=== PATIENT | male | born 1980 | race Caucasian/White ===

== ENCOUNTER 2024-07-03 17:01 | Emergency (ER) | payer OTHER ==
[~2024-07-03] VITALS: Ht 180.3 cm; Wt 106.0 kg
[2024-07-03] MEDS ORDERED: DIPHTH,PERTUSS(ACELL),TET VAC 0.5 ML SYRINGE IM ONE (17:30)
[2024-07-03 19:35] VITALS: BP 150/94
== END 2024-07-03 19:35 | disposition home or self-care (01) ==
LOC: ED 17:01
DX: S61.314A Laceration without foreign body of right ring finger with damage to nail, initial encounter (principal); S60.141A Contusion of right ring finger with damage to nail, initial encounter; W23.0XXA Caught, crushed, jammed, or pinched between moving objects, initial encounter
CPT/HCPCS: 73130; 90471; 90715; 99283-25